=== PATIENT | male | born 1970 | race Caucasian/White ===

== ENCOUNTER 2016-12-26 20:06 | Emergency (ER) | payer OTHER ==
[2016-12-26] MEDS ORDERED: TDAP ADULT 0.5 ML INJ (BOOSTRIX) IM ONE (20:35)
--- NOTE | 2016-12-26 21:13 | EDPHY ---
H & P Stated Complaint: L hand lac HPI/ROS: Chief complaint: Left hand laceration History of present illness: This is a 46-year-old male who presents to the emergency department for evaluation of a laceration to his left hand. Patient reports just prior to arrival he cut his hand on a metal nail. He sustained a large laceration over the top of it. There has been mild pain. Bleeding was controlled with a dressing. He denies associated signs or symptoms including no abnormal coolness or paresthesias in the hand. He still able to move all fingers without difficulty. He can move the wrist without difficulty. No other injuries reported. He does not believe his tetanus is up-to-date. - Personal History Current Tetanus/Diphtheria Vaccine: Unsure Current Tetanus Diphtheria and Acellular Pertussis (TDAP): Unsure - Medical/Surgical History Hx Asthma: No Hx Chronic Respiratory Disease: No Hx Diabetes: No Hx Cardiac Disease: No Hx Renal Disease: No Hx Cirrhosis: No Hx Alcoholism: No Hx HIV/AIDS: No Hx Splenectomy or Spleen Trauma: No Other PMH: PMH: PSH:HERNIA REPAIR 2013, vasectomy reversal - Social History Smoking Status: Never smoked - Physical Exam Exam: General: Alert, nontoxic Skin: 5 cm laceration over the dorsum of the left hand. It is explored to its base. No foreign bodies are noted. I am able to visualize extensor tendons, they appear to be moving well. I do not appreciate any evidence of injury to them. Musculoskeletal: Patient is moving all joints in all digits in all ramos well. He is moving the wrist in all ramos well. Vascular: Capillary refill brisk in all digits of the left hand. Radial pulses 2+. Neurologic: Sensation intact throughout the left hand. Constitutional: Initial Vital Signs Temperature (C) 36.6 C 12/26/16 20:14 Heart Rate 69 12/26/16 20:14 Respiratory Rate 16 12/26/16 20:14 Blood Pressure 163/98 H 12/26/16 20:14 O2 Sat (%) 95 12/26/16 20:14 O2 Delivery Mode Room Air Allergies/Adverse Reactions: Penicillins Allergy (Mild, Verified 06/25/15 17:00) Home Medications: Medication Instructions Recorded NK [No Known Home Meds] 08/24/16 Medical Decision Making Procedures: Procedure: Laceration repair. Verbal consent was obtained from the patient. The 5 cm laceration on the dorsum of the left hand was anesthetized in the usual fashion. The wound was irrigated , draped and explored to its base with a gloved finger. There were no deep structures involved. No tendon injury was identified. The wound was repaired with 5 0 Ethilon, 10 simple interrupted sutures. The wound repair was simple. The procedure was performed by myself. Procedure: Splint placement. A volar splint was applied. After application of the splint I returned and re- examined the patient. The splint was adequately immobilizing the joint and distal to the splint the patient's circulation and sensation was intact. ED Course/Re-evaluation: Patient was seen under the supervision of my secondary supervising physician Dr. Radha Brown. Patient presents to the emergency department for a laceration to the left hand. His left hand appears neurovascularly intact. He has good musculoskeletal control of the fingers. On evaluation of the wound I am able visualize tendons but I do not appreciate evidence of trauma to them. The wound is anesthetized, copiously irrigated and repaired. He is placed in a volar splint to facilitate healing. I have asked him to follow up with a hand surgeon this week for recheck. Home care is discussed. Return precautions are given. Patient voiced understanding and agreement with plan. Differential Diagnosis: Included but not limited to laceration, deep structure injury, foreign body contamination - Data Points Medications Given: Discontinued Medications Diphtheria/Tetanus/Acell Pertussis (Boostrix) 0.5 ml IM .ONCE ONE Stop: 12/26/16 20:36 Last Admin: 12/26/16 20:41 Dose: 0.5 ml Departure - Departure Disposition: Home, Routine, Self-Care Clinical Impression: Hand laceration Qualifiers: Encounter type: initial encounter Laterality: left Qualified Code(s): S61.412A - Laceration without foreign body of left hand, initial encounter Condition: Good Instructions: Care For Your Stitches (ED), Laceration (ED), Acute Wounds (ED) Additional Instructions: Follow-up with a hand surgeon this week for recheck Stitches to be removed in 10 days If symptoms worsen or new symptoms develop return to the emergency department for recheck Referrals: Saida Montes De Oca MD [Primary Care Provider] - As per Instructions Michael Holder MD [Medical Doctor] - As per Instructions
[2016-12-26 21:33] VITALS: BP 128/78; PULSE 70; RESP 14; TEMP 98.4; O2SAT 98
== END 2016-12-26 21:32 | disposition home or self-care (01) ==
PROC: 0HQGXZZ Repair Left Hand Skin, External Approach (ICD-10-PCS; principal; 2016-12-26)
DX: S61.412A Laceration without foreign body of left hand, initial encounter (principal); Z23 Encounter for immunization; W45.0XXA Nail entering through skin, initial encounter